=== PATIENT | male | born 1970 | race Caucasian/White ===

== ENCOUNTER 2019-04-01 16:44 | Emergency (ER) | payer BC, OTHER ==
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
--- NOTE | 2019-04-01 18:50 | CR ---
Chest and bilateral ribs: Frontal view of the chest is obtained as well as 4 additional views of the right and left ribs. Comparison: No previous chest or rib study. Heart size is normal. Mediastinum is normal. Lungs show no acute parenchymal change. 3 old healed anterolateral rib fractures are seen within the left upper chest. No acute fracture or other bony abnormality is appreciated. Impression: 1. Nothing acute is seen on chest x-ray. 2. 3 old healed anterolateral rib fractures within the left upper chest. 3. No definite acute fracture is seen. Nondisplaced rib fracture could be missed. Diagnostic code #2 Study was dictated in [place] Standard Time
--- NOTE | 2019-04-01 18:50 | CR ---
Left forearm: 2 views of the left forearm were obtained. Comparison: No prior forearm study is available. Deformity of the distal radius is seen compatible with old healed fracture. No acute fracture or other bony abnormality is appreciated. Impression: 1. Old healed distal radial fracture with mild deformity. 2. Left forearm study is otherwise unremarkable. Diagnostic code #2 Study was dictated in [place] Standard Time
[2019-04-01 19:06] VITALS: BP 109/86; PULSE 81
== END 2019-04-01 19:04 | disposition home or self-care (01) ==
LOC: MW.ED 16:44
DX: S20.211A Contusion of right front wall of thorax, initial encounter (principal); S20.212A Contusion of left front wall of thorax, initial encounter; S50.12XA Contusion of left forearm, initial encounter; F17.210 Nicotine dependence, cigarettes, uncomplicated; V69.9XXA Occupant (driver) (passenger) of heavy transport vehicle injured in unspecified traffic accident, initial encounter
CPT/HCPCS: 71111; 71111-26; 73090-26-LT; 73090-LT; 99283; 99283-25

== ENCOUNTER 2019-04-03 22:10 | Emergency (ER) | payer SELFPAY ==
[2019-04-03] MEDS ORDERED: Ketorolac 60 MG/2 ML SDV IM ONE (23:11)
--- NOTE | 2019-04-03 23:19 | EDM.PDOC ---
ED HPI GENERAL MEDICAL PROBLEM - General Chief Complaint: Upper Extremity Injury/Pain Stated Complaint: RIGHT HAND NEED TO BE CHECKED Time Seen by Provider: 04/03/19 23:04 - History of Present Illness INITIAL COMMENTS - FREE TEXT/NARRATIVE: HISTORY AND PHYSICAL: History of present illness: Patient is a 48-year-old male who works with his hands a lot and says that he has right fourth digit was smashed earlier this today when he was at work and he has had persistent pain and swelling since. He did take 1 dose of over-the- counter Advil, 400 mg, but he has not been icing and elevating it. The patient says that he has no proximal hand pain wrist pain forearm elbow or shoulder pain and has no other systemic issues. He is able to move the finger but because it swelling it is more uncomfortable. Review of systems: As per history of present illness and below otherwise all systems reviewed and negative. Past medical history: As per history of present illness and as reviewed below otherwise noncontributory. Surgical history: As per history of present illness and as reviewed below otherwise noncontributory. Social history: No reported history of drug or alcohol abuse. Family history: As per history of present illness and as reviewed below otherwise noncontributory. Physical exam: HEENT: Atraumatic, normocephalic, negative for conjunctival pallor or scleral icterus, mucous membranes moist, throat clear, neck supple, nontender, trachea midline. Lungs: Clear to auscultation, breath sounds equal bilaterally, chest nontender. Heart: S1S2, regular, rate and rhythm no overt murmurs Abdomen: Soft, nondistended, nontender.. Negative for costovertebral tenderness. Pelvis: Deferred Genitourinary: Deferred. Rectal: Deferred. Extremities: Atraumatic, and full range of motion of all extremities with the exception of the right fourth digit where there is circumferential swelling and soft tissue tenderness with some patchy areas of ecchymosis throughout and a small subungual hematoma at the base of the nail. The remainder of the fingers and hand are without tenderness defects or deformities but there are other chronic scabs and changes appreciated not related to today's injury.. Neurovascular unremarkable. Neuro: Awake, alert, oriented. Cranial nerves II through XII unremarkable. Cerebellum unremarkable. Motor and sensory unremarkable throughout. Exam nonfocal. Diagnostics: X-ray right fourth digit Therapeutics: He was offered Toradol and refuses Finger splint Impression: Right fourth distal tuft fracture and finger contusion Definitive disposition and diagnosis as appropriate pending reevaluation and review of above. R ring finger Pain Score (Numeric/FACES): 5 - Related Data Allergies Allergy/AdvReac Type Severity Reaction Status Date / Time No Known Allergies Allergy Verified 04/03/19 22:24 Home Meds: Home Meds . [No Known Home Meds] 04/03/19 [History] Past Medical History - Past Health History Medical/Surgical History: Denies Medical/Surgical History Cardiovascular History: Reports: Hypertension - Past Surgical History Cardiovascular Surgical History: Reports: None Social & Family History - Family History Family Medical History: Noncontributory - Tobacco Use Smoking Status *Q: Current Every Day Smoker Years of Tobacco use: 8 Packs/Tins Daily: 0.5 - Caffeine Use Caffeine Use: Reports: Coffee - Recreational Drug Use Recreational Drug Use: No Review of Systems - Review of Systems Review Of Systems: Comprehensive ROS is negative, except as noted in HPI. ED EXAM, GENERAL - Physical Exam Exam: See Below (See dictation) Course - Vital Signs Last Recorded V/S: Last Vital Signs Temp 36.6 C 04/03/19 22:20 Pulse 76 04/03/19 22:20 Resp 18 04/03/19 22:20 BP Pulse Ox 95 04/03/19 22:20 - Orders/Labs/Meds Orders: Active Orders 24 hr Category Date Time Status DME for Discharge [COMM] Stat Oth 04/04/19 00:12 Ordered Meds: Medications Discontinued Medications Generic Name Dose Route Start Last Admin Trade Name Raquel PRN Reason Stop Dose Admin Ketorolac Tromethamine 60 mg 04/03/19 23:11 04/03/19 23:15 Toradol IM 04/03/19 23:12 Not Given ONETIME ONE Departure - Departure Time of Disposition: 00:14 Disposition: Home, Self-Care 01 Condition: Good Clinical Impression: Finger fracture, right Qualifiers: Encounter type: initial encounter Finger: ring finger Fracture type: closed Phalanx: distal Fracture alignment: nondisplaced Qualified Code(s): S62.664A - Nondisplaced fracture of distal phalanx of right ring finger, initial encounter for closed fracture - Discharge Information Referrals: PCP,None [Primary Care Provider] - Forms: ED Department Discharge Additional Instructions: The following information is given to patients seen in the emergency department who are being discharged to home. This information is to outline your options for follow-up care. We provide all patients seen in our emergency department with a follow-up referral. The need for follow-up, as well as the timing and circumstances, are variable depending upon the specifics of your emergency department visit. If you don't have a primary care physician on staff, we will provide you with a referral. We always advise you to contact your personal physician following an emergency department visit to inform them of the circumstance of the visit and for follow-up with them and/or the need for any referrals to a consulting specialist. The emergency department will also refer you to a specialist when appropriate. This referral assures that you have the opportunity for followup care with a specialist. All of these measure are taken in an effort to provide you with optimal care, which includes your followup. Under all circumstances we always encourage you to contact your private physician who remains a resource for coordinating your care. When calling for followup care, please make the office aware that this follow-up is from your recent emergency room visit. If for any reason you are refused follow-up, please contact the [facility] emergency department at and ask to speak to the emergency department charge nurse. Dr Sullivan & [facility] [address] [place] [address] Ice and elevate the area and wear splint at all times. Please call and follow- up with a hand specialist at [facility] as we no longer have a hand specialist here. Use [id number] Tylenol and ibuprofen for pain management and return to ER as needed and as discussed. Sepsis Event Note - Evaluation Sepsis Screening Result: No Definite Risk - Focused Exam Vital Signs: Vital Signs Temp Pulse Resp Pulse Ox 04/03/19 22:20 36.6 C 76 18 95 Date Exam was Performed: 04/04/19 Time Exam was Performed: 00:13 - My Orders Last 24 Hours: My Active Orders 04/04/19 00:12 DME for Discharge [COMM] Stat - Assessment/Plan Last 24 Hours: My Active Orders 04/04/19 00:12 DME for Discharge [COMM] Stat
--- NOTE | 2019-04-03 23:42 | CR ---
INDICATION: Crushing injury to right 4th finger. COMPARISON: None. FINDINGS/IMPRESSION: Right 4th finger, three views. Comminuted nondisplaced fracture of the tuft of the distal phalanx of the right 4th finger with overlying soft tissue swelling. No other acute findings are noted. Dictated by Nic Ceron MD @ 04/03/2019 11:41:52 PM Dictated by: Nic Ceron MD @ 04/03/2019 23:42:21 (Electronically Signed)
[2019-04-04 01:07] VITALS: BP 122/82; PULSE 65
== END 2019-04-04 00:25 | disposition home or self-care (01) ==
LOC: MW.ED 22:10
DX: S62.664A Nondisplaced fracture of distal phalanx of right ring finger, initial encounter for closed fracture (principal); I10 Essential (primary) hypertension; F17.210 Nicotine dependence, cigarettes, uncomplicated; W22.8XXA Striking against or struck by other objects, initial encounter; Y92.89 Other specified places as the place of occurrence of the external cause; Y99.0 Civilian activity done for income or pay
CPT/HCPCS: 73140-26-F8; 73140-F8; 99283; 99283-25